=== PATIENT | female | born 1995 | race Caucasian/White ===

== ENCOUNTER → 2018-01-24 | Day surgery (SDC) | payer OTHER ==
[2018-01-21 11:49] VITALS: BMI 42.0
[~2018-01-24] VITALS: Ht 147.3 cm; Wt 90.9 kg
[~2018-01-24] MED LIST: FOLI800T PO; HYDR-3126 PO; LIDOCAINE HCL 2% 2 ML VIAL (20MG/ML) ONE; MIDAZOLAM HCL 1 MG/ML 2ML VIAL ONE; MISCCAP80 PO; ONDANSETRON INJ 2 MG/ML 2 ML VIAL ONE; PROPOFOL IV EMULSION 10 MG/ML 20 ML VIAL ONE; RANI300T2 PO; SODIUM CHLORIDE 0.9% 500ML 500 ML IV ONE; VITAMIN D PO; VNTHFA/IN INH
[2018-01-24 13:28] VITALS: Ht 147.3 cm; Wt 90.9 kg
--- NOTE | 2018-01-24 14:00 | Endo History and Physical ---
History & Physical Date of Service: Jan 24, 2018. Chief Complaint: ABD PAIN DIARRHEA CONSTIPATION Referring Physician: DR. CAMARILLO History of Present Illness 22 yo CF who presents for colonoscopy secondary to abdominal pain, rectal bleeding and diarrhea. Past Surgical History Hx Cardiac Surgery: No Hx Internal Defibrillator: No Hx Pacemaker: No Hx Abdominal Surgery: No Hx of Implantable Prosthesis: No Hx Post-Op Nausea and Vomiting: Yes (SEVERE PONV) Hx Cancer Surgery: No Hx Thoracic Surgery: No Hx Orthopedic: Yes (LEFT BUNIONECTOMY X 2, RT BUNIONECTOMY) Hx Urinary Tract Surgery: No Social History Smoking Status: Never Smoker Hx Substance Use: No Hx Alcohol Use: Yes (RARELY) Allergies Coded Allergies: Oxycodone (Verified Allergy, Unknown, NAUSEA/HIVES, 01/21/18) Current Medications Reported Home Medications Medications Dose Route/Sig Max Daily Dose Days Date Category Ventolin Hfa (Albuterol) 200 Puffs/98255 Mcg Aers 2-4 Puffs INH Q6H PRN 01/21/18 Reported Zantac (Ranitidine HCl) 300 Mg Tab 300 Mg PO HS 01/21/18 Reported Atarax (Hydroxyzine Hcl) 50 Mg Tab 50 Mg PO HS 01/21/18 Reported Probiotic (Probiotic Product) 1 Cap Cap 1 Cap PO QAM 01/21/18 Reported Folic Acid 800 Mcg Tab 1 Tab PO QAM 01/21/18 Reported [Vitamin D] 4,000 Inter.unit PO QAM 01/21/18 Reported Vital Signs Weight (Kilograms): 90.91 Height (Feet): 4 Height (Inches): 10 Date Time Temp Pulse Resp B/P (MAP) Pulse Ox O2 Delivery O2 Flow Rate FiO2 01/24/18 13:42 37 106 18 146/86 (106) 100 Room Air Physical Exam General Appearance: WD/WN, no apparent distress Respiratory/Chest: Auscultation: breath sounds normal Cardiovascular: Heart Auscultation: RRR Abdomen: Bowel Sounds: normal Inspection & Palpation: soft, non-distended, no tenderness, guarding & rebound Assessment and Plan Assessment: 22 yo CF who presents for colonoscopy secondary to abdominal pain, rectal bleeding and diarrhea. Plan: Proceed with colonoscopy.
--- NOTE | 2018-01-24 14:27 | Discharge Instructions ---
Endoscopy Patient Instructions Date / Procedure(s) Performed Jan 24, 2018. Colonoscopy Allergy Information Coded Allergies: Oxycodone (Verified Allergy, Unknown, NAUSEA/HIVES, 01/21/18) Discharge Date / Findings Jan 24, 2018. Internal hemorrhoids Random colon biopsies Stool aspirate collected Medication Instructions OK to resume all medications today as prescribed Reported Home Medications Medications Dose Route/Sig Max Daily Dose Days Date Category Ventolin Hfa (Albuterol) 200 Puffs/79299 Mcg Aers 2-4 Puffs INH Q6H PRN 01/21/18 Reported Zantac (Ranitidine HCl) 300 Mg Tab 300 Mg PO HS 01/21/18 Reported Atarax (Hydroxyzine Hcl) 50 Mg Tab 50 Mg PO HS 01/21/18 Reported Probiotic (Probiotic Product) 1 Cap Cap 1 Cap PO QAM 01/21/18 Reported Folic Acid 800 Mcg Tab 1 Tab PO QAM 01/21/18 Reported [Vitamin D] 4,000 Inter.unit PO QAM 01/21/18 Reported Provider Instructions Activity Restrictions - No exercising or heavy lifting for 24 hours. - Do not drink alcohol the day of the procedure. - Do not drive a car or operate machinery until the day after the procedure. - Do not make any important decisions or sign important papers in 24 hours after the procedure. Following Day: - Return to full activity which may include returning to work/school. Diet Start your diet with liquids and light foods (jello, soup, juice, toast). Then eat your usual diet if not nauseated. Treatment For Common After Affects For mild abdominal pain, bloating, or excessive gas: - Rest - Eat lightly - Lie on right side Follow-Up Information Follow-up with DR. CAMARILLO as scheduled Anesthesia Information What You Should Know You have had a procedure that required some medicine to reduce anxiety and discomfort. This treatment is called moderate sedation. After receiving the treatment, you may be sleepy, but you will be able to breathe on your own. The effects of the treatment may last for several hours. Follow these instructions along with Activity/Diet recommendations noted above: * Do NOT do anything where dizziness or clumsiness would be dangerous. * Rest quietly at home today, then you can be up and about tomorrow. * Have a responsible person stay with you the rest of today. * You may have had an I.V. today. If so, you may take the dressing off later today. Recommendations Call your doctor if: * Trouble breathing * Continuous vomiting for more than 24 hours * Temperature above 101 degrees * Severe abdominal pain or bloating * Pain not relieved by pain medicine ordered * There is increased drainage or redness from any incision * A large amount of rectal bleeding greater than 2-3 tablespoons. (If you had a polyp/s removed or have hemorrhoids, a small amount of blood - from the rectum is to be expected.) * You have any unanswered questions or concerns. IN THE EVENT OF A SERIOUS EMERGENCY, GO TO THE NEAREST EMERGENCY ROOM Your discharge instructions were prepared by provider Logan Vergara. Patient Instructions Signature Page Leyla Lorenz Patient (or Guardian) Signature/Date: I have read and understand the instructions given to me by my caregivers. Caregiver/RN/Doctor Signature/Date: The above-named patient and/or guardian has received patient instructions on this date. + Original Patient Signature Page (only) stays with chart. Please make copy for patient.
--- NOTE | 2018-01-24 14:43 | GI REPORT ---
Patient Name: Leyla Lorenz Procedure Date: 01/24/2018 1:29 PM Date of : 1995 Admit Type: Outpatient Age: 22 Gender: Female Attending MD: Logan Vergara DO Procedure: Colonoscopy Providers: Logan Vergara DO Referring MD: Mitra Reyes Indications: Generalized abdominal pain, Chronic diarrhea, Rectal bleeding Medicines: Monitored Anesthesia Care Complications: No immediate complications. Estimated Blood Loss: Estimated blood loss: none. Procedure: Pre-Anesthesia Assessment: - Prior to the procedure, a History and Physical was performed, and patient medications and allergies were reviewed. The patient's tolerance of previous anesthesia was also reviewed. The risks and benefits of the procedure and the sedation options and risks were discussed with the patient. All questions were answered, and informed consent was obtained. Prior Anticoagulants: The patient has taken no previous anticoagulant or antiplatelet agents. ASA Grade Assessment: II - A patient with mild systemic disease. After reviewing the risks and benefits, the patient was deemed in satisfactory condition to undergo the procedure. After I obtained informed consent, the scope was passed under direct vision. Throughout the procedure, the patient's blood pressure, pulse, and oxygen saturations were monitored continuously. The Scope was introduced through the anus and advanced to the terminal ileum. The colonoscopy was performed without difficulty. The patient tolerated the procedure well. The quality of the bowel preparation was good. The terminal ileum, ileocecal valve, appendiceal orifice, and rectum were photographed. Findings: The perianal and digital rectal examinations were normal. Non-bleeding internal hemorrhoids were found during retroflexion. The hemorrhoids were small. Several random biopsies were obtained with cold forceps for histology in the entire colon. Fluid aspiration for stool studies was performed in the entire colon. Impression: - Non-bleeding internal hemorrhoids. - Several random biopsies were obtained in the entire colon. - Fluid aspiration was performed. Recommendation: - Resume previous diet. - Continue present medications. - Repeat colonoscopy for surveillance based on pathology results. - Return to primary care physician as previously scheduled. Logan Vergara DO 01/24/2018 2:43:36 PM This report has been signed electronically. Note Initiated On: 01/24/2018 1:29 PM Number of Addenda: 0 I attest to the content of the Intraoperative Record and orders documented therein, exceptions below {[id number]}
[2018-01-24 14:53] VITALS: BP 118/84; PULSE 94; O2SAT 99
--- NOTE | 2018-01-24 15:03 | Anesthesiology Progress Note ---
Anesthesia Post Op Note Date & Time Jan 24, 2018 at 15:02 Vital Signs Pain Intensity: 0 Vital Signs Past 12 Hours Date Time Temp Pulse Resp B/P (MAP) Pulse Ox O2 Delivery O2 Flow Rate FiO2 01/24/18 14:53 94 20 118/84 (95) 99 Room Air 01/24/18 14:38 87 20 120/75 (90) 99 Room Air 01/24/18 14:23 91 24 116/69 (85) 99 Room Air 01/24/18 13:42 37 106 18 146/86 (106) 100 Room Air Notes Mental Status: alert / awake / arousable, participated in evaluation Pt Amnestic to Procedure: Yes Nausea / Vomiting: adequately controlled Pain: adequately controlled Airway Patency, RR, SpO2: stable & adequate BP & HR: stable & adequate Hydration State: stable & adequate Anesthetic Complications: no major complications apparent
== END | disposition home or self-care (01) ==
LOC: C.GI 13:18
PROVIDERS: ATTEND Internal Medicine
DX: R10.84 Generalized abdominal pain (principal); K52.9 Noninfective gastroenteritis and colitis, unspecified; K62.5 Hemorrhage of anus and rectum; J45.909 Unspecified asthma, uncomplicated; K64.8 Other hemorrhoids; Z88.5 Allergy status to narcotic agent; Z79.899 Other long term (current) drug therapy; E66.9 Obesity, unspecified; Z68.41 Body mass index [BMI] 40.0-44.9, adult